=== PATIENT | female | born 1975 | race Caucasian/White ===

== ENCOUNTER 2016-08-19 11:00 | Emergency (ER) | payer OTHER ==
[~2016-08-19 11:00] MED LIST: ACETAMINOPHEN-H1 TA1 PO; ATIVAN0.5 M1 PO; BG MC; COL100 PO; FLA5PM IV; HUMALOG100 U/ML SC; LEVAQUIN750 MG/150 IV; MOR2I IV; MOTRIN800 MG PO; PAXIL10 MG PO; PHE25I IV; PRI20 PO; TYL325 PO; ZOFI IV; [UNRECOGNIZED DRUG - OTHER]
[2016-08-19 13:28] VITALS: BP 125/79
== END 2016-08-19 13:55 | disposition home or self-care (01) ==
LOC: ED 11:00
DX: S16.1XXA Strain of muscle, fascia and tendon at neck level, initial encounter (principal); S20.219A Contusion of unspecified front wall of thorax, initial encounter; E11.9 Type 2 diabetes mellitus without complications; Z79.4 Long term (current) use of insulin; V49.9XXA Car occupant (driver) (passenger) injured in unspecified traffic accident, initial encounter; Y93.89 Activity, other specified; Y99.8 Other external cause status; Y92.89 Other specified places as the place of occurrence of the external cause

== ENCOUNTER 2017-01-12 05:29 | Emergency (ER) | payer OTHER ==
[2017-01-12 06:39] VITALS: BP 130/70
== END 2017-01-12 06:39 | disposition home or self-care (01) ==
LOC: ED 05:29
DX: T16.1XXA Foreign body in right ear, initial encounter (principal); E11.9 Type 2 diabetes mellitus without complications; F17.210 Nicotine dependence, cigarettes, uncomplicated; Z71.6 Tobacco abuse counseling; Z79.4 Long term (current) use of insulin; X58.XXXA Exposure to other specified factors, initial encounter; Y93.89 Activity, other specified; Y99.8 Other external cause status; Y92.89 Other specified places as the place of occurrence of the external cause
CPT/HCPCS: 99406

== ENCOUNTER 2018-09-06 15:26 | Emergency (ER) | payer SELFPAY ==
[~2018-09-06] VITALS: Ht 167.6 cm; Wt 80.7 kg
[2018-09-06 15:53] VITALS: Ht 167.6 cm; Wt 80.7 kg
[2018-09-06 18:38] LABS: BASOPHIL % 0.5 % (0-2); PLATELET COUNT 195 x10^3mcL (130-400); RED CELL DISTRIBUTION WIDTH 13.7 % (11.5-14.5)
[2018-09-06 18:43] LABS: CALCIUM 8.7 mg/dL (8.5-10.1); CARBON DIOXIDE 27.5 mmol/L (21-32); CHLORIDE SERUM 97 mmol/L (98-107); CREATININE SERUM 0.8 mg/dL (0.6-1.0); GFR1 > 60 mL/min; GLUCOSE SERUM 383 mg/dL (74-106); POTASSIUM SERUM 3.8 mmol/L (3.5-5.1); SODIUM SERUM 133 mmol/L (136-145)
[2018-09-06 18:48] LABS: ALBUMIN 3.7 g/dL (3.4-5.0); ALKALINE PHOSPHATASE 99 U/L (46-116); ALT/SGPT 46 U/L (14-59); AST/SGOT 23 U/L (15-37); BILIRUBIN TOTAL 0.48 mg/dL (0.20-1.00); TOTAL PROTEIN, SERUM 7.6 g/dL (6.4-8.2)
[2018-09-06 20:13] VITALS: BP 130/79
== END 2018-09-06 20:13 | disposition home or self-care (01) ==
LOC: ED 15:26
PROVIDERS: Emergency Medicine
DX: L02.211 Cutaneous abscess of abdominal wall (principal); E11.65 Type 2 diabetes mellitus with hyperglycemia; Z85.41 Personal history of malignant neoplasm of cervix uteri; Z90.710 Acquired absence of both cervix and uterus
CPT/HCPCS: 82962; J0696

== ENCOUNTER 2018-12-19 18:08 | Emergency (ER) | payer MEDICAID ==
[~2018-12-19] VITALS: Ht 167.6 cm; Wt 82.6 kg
[2018-12-19 18:15] VITALS: Ht 167.6 cm; Wt 82.6 kg
[2018-12-19 19:26] LABS: BASOPHIL % 0.7 % (0-2); PLATELET COUNT 199 x10^3mcL (130-400); RED CELL DISTRIBUTION WIDTH 13.7 % (11.5-14.5)
[2018-12-19 19:39] LABS: CALCIUM 8.7 mg/dL (8.5-10.1); CARBON DIOXIDE 27.2 mmol/L (21-32); CHLORIDE SERUM 98 mmol/L (98-107); CREATININE SERUM 0.8 mg/dL (0.6-1.0); GFR1 > 60 mL/min; GLUCOSE SERUM 311 mg/dL (74-106); SODIUM SERUM 136 mmol/L (136-145)
[2018-12-19 19:44] LABS: ALBUMIN 3.7 g/dL (3.4-5.0); ALKALINE PHOSPHATASE 92 U/L (46-116); ALT/SGPT 54 U/L (14-59); AST/SGOT 16 U/L (15-37); BILIRUBIN TOTAL 0.5 mg/dL (0.20-1.00); TOTAL PROTEIN, SERUM 7.6 g/dL (6.4-8.2)
[2018-12-19 21:18] LABS: microscopic required? YES; urine erythrocyte 2+ (NEGATIVE)
[2018-12-19 22:39] VITALS: BP 129/81
== END 2018-12-19 22:39 | disposition home or self-care (01) ==
LOC: ED 18:08
PROVIDERS: Emergency Medicine
DX: N39.0 Urinary tract infection, site not specified (principal); R10.30 Lower abdominal pain, unspecified; Z90.710 Acquired absence of both cervix and uterus; Z85.41 Personal history of malignant neoplasm of cervix uteri
CPT/HCPCS: 36415

== ENCOUNTER 2019-10-17 15:32 | Emergency (ER) | payer MEDICAID ==
[~2019-10-17] VITALS: Ht 167.6 cm; Wt 83.9 kg
[2019-10-17 15:44] VITALS: Ht 167.6 cm; Wt 83.9 kg
[2019-10-17 17:04] LABS: BASOPHIL % 0.4 % (0-2); PLATELET COUNT 204 x10^3mcL (130-400); RED CELL DISTRIBUTION WIDTH 13.9 % (11.5-14.5)
[2019-10-17 17:08] LABS: T3 TOTAL 1.32 ng/mL
[2019-10-17 17:08] LABS: UA SPECIFIC GRAVITY 1.025 (1.005-1.035); microscopic required? YES; urine erythrocyte NEGATIVE (NEGATIVE)
[2019-10-17 17:10] LABS: CALCIUM 8.5 mg/dL (8.5-10.1); CARBON DIOXIDE 29.3 mmol/L (21-32); CREATININE SERUM 1.1 mg/dL (0.6-1.0); POTASSIUM SERUM 3.7 mmol/L (3.5-5.1)
[2019-10-17 17:13] LABS: FREE T4 1.29 ng/dL (0.76-1.46); FREE THYROXINE INDEX 3.2 ug/dL (1.4-4.5); T4(THYROXINE) 9.9 ug/dL (4.7-13.3)
[2019-10-17 17:14] LABS: ALBUMIN 3.8 g/dL (3.4-5.0); BILIRUBIN TOTAL 0.5 mg/dL (0.20-1.00); TOTAL PROTEIN, SERUM 7.6 g/dL (6.4-8.2)
[2019-10-17 17:15] LABS: CHOLESTEROL/HDL RATIO 6.4
[2019-10-17 18:02] VITALS: BP 120/78
== END 2019-10-17 18:02 | disposition home or self-care (01) ==
LOC: ED 15:32
PROVIDERS: Specialist
DX: E11.65 Type 2 diabetes mellitus with hyperglycemia (principal); R07.89 Other chest pain; R25.2 Cramp and spasm
CPT/HCPCS: 82962; 83880; 84439; J7030; Q0092

== ENCOUNTER 2020-04-27 15:41 | Emergency (ER) | payer MEDICAID ==
[~2020-04-27] VITALS: Ht 167.6 cm; Wt 84.4 kg
[2020-04-27 15:53] VITALS: Ht 167.6 cm; Wt 84.4 kg
[2020-04-27 20:00] LABS: BASOPHIL % 0.6 % (0.2-1.3); PLATELET COUNT 216 x10^3mcL (179-408)
[2020-04-27 20:02] LABS: RED CELL DISTRIBUTION WIDTH 14.7 % (12.3-17.7)
[2020-04-27 20:35] LABS: CALCIUM 9.2 mg/dL (8.5-10.1); CARBON DIOXIDE 26.6 mmol/L (21-32); CHLORIDE SERUM 104 mmol/L (98-107); CREATININE SERUM 0.8 mg/dL (0.6-1.0); GFR1 > 60 mL/min; GLUCOSE SERUM 105 mg/dL (74-106); SODIUM SERUM 140 mmol/L (136-145)
[2020-04-27 20:40] LABS: ALKALINE PHOSPHATASE 72 U/L (46-116); ALT/SGPT 41 U/L (14-59); AST/SGOT 16 U/L (15-37); BILIRUBIN TOTAL 0.45 mg/dL (0.20-1.00); TOTAL PROTEIN, SERUM 8.1 g/dL (6.4-8.2)
[2020-04-27 21:10] VITALS: BP 141/71
== END 2020-04-27 21:10 | disposition home or self-care (01) ==
LOC: ED 15:41
PROVIDERS: Emergency Medicine
DX: R00.2 Palpitations (principal); R11.0 Nausea; R25.1 Tremor, unspecified; E11.9 Type 2 diabetes mellitus without complications; Z20.828 Contact with and (suspected) exposure to other viral communicable diseases
CPT/HCPCS: U0003